=== PATIENT | female | born 1975 | race Caucasian/White ===

== ENCOUNTER 2021-01-15 05:50 | Day surgery (SDC) | payer OTHER ==
[~2021-01-15] VITALS: Ht 162.6 cm; Wt 70.5 kg
--- NOTE | ~2021-01-15 | OR ---
[facility] [address], [place] [address] Draft DATE OF OPERATION: 01/15/2021 SURGEON: Alea Jarvis DO PREOPERATIVE DIAGNOSIS: Left ovarian mass. POSTOPERATIVE DIAGNOSES: 1. Left ovarian mass. 2. Endometriosis. 3. Significant pelvic adhesions. PROCEDURE PERFORMED: Diagnostic laparoscopy. ROTARY HELPER: Amarjit Collado MD ANESTHESIA: General. ESTIMATED BLOOD LOSS: 10 mL. SPECIMEN: Peritoneal washings. FINDINGS: Complex-appearing 10 cm left ovarian cyst consistent with endometrioma. Significant adhesions of mass to bowel and uterus. Unable to visualize left fallopian tube or posterior uterus, pelvic cul-de-sac. Right fallopian tube densely adherent to pelvic sidewall. Numerous filmy adhesions between uterus, pelvic sidewall, and uterus. Numerous endometriosis lesions including powder burn lesions scattered across the peritoneum as well as left and right ovarian fossa. INDICATIONS: The patient is a 45-year-old female, who presented for evaluation of left ovarian mass. Case was reviewed with [facility] due to concerning size, mass, and complexity on imaging. CA-125 and AT4 were obtained and reassuring for local surgery. Risks, benefits, and alternatives to laparoscopic left oophorectomy were discussed with the patient including PATIENT NAME: SALMA WEISS OPERATIVE REPORT DATE OF : 75 REPORT #: [id number] PHYSICIAN: ALEA JARVIS DO PCP: JENIFER HOFFMAN PA-C REPORT IS CONFIDENTIAL AND NOT TO BE RELEASED WITHOUT AUTHORIZATION [facility] [address], [place] [address] Draft risk of encountering significant scar tissue requiring additional procedures. The recommendation for procedure being performed by [facility] in [place] instead. The patient elected to proceed. DESCRIPTION OF PROCEDURE: The patient was taken to the operating room. She was given 2 g of Ancef for antibiotic prophylaxis, placed under general anesthesia and prepped and draped in the normal sterile fashion. Weighted speculum was placed in the vagina. Cervix was grasped at the 12 o'clock position with an Allis clamp. Cervix could not be dilated to accommodate a Hulka clamp due to significant stenosis of the internal os despite attempts at dilation with lacrimal duct dilator. Instead, a sponge stick was placed in the posterior vagina and tenaculum and Allis clamp and weighted speculum were removed. Surgeon's gloves were changed and attention was turned to the abdomen. Infraumbilical horizontal incision was made with a scalpel and carried down to the fascia with sharp and blunt dissection with Metzenbaum scissors. The fascia was grasped with hemostats and incision made with Metzenbaum scissors. Superior margin of fascia was grasped with hemostat and a stay suture of 0 Vicryl was placed. In a similar fashion, inferior margin was grasped with hemostats. Stay suture of 0 Vicryl was placed. Peritoneum was entered bluntly and Kaitlin trocar was placed without difficulty. The patient was placed in Trendelenburg positioning. Left and right assist ports were placed laterally under direct visualization after infiltration of local anesthesia. Abdomen was then surveyed with findings as noted above. Pictures were taken of the significant scar tissue that was encountered as well as endometriosis lesions scattered across pelvic organs and peritoneum. Due to the extensive adhesions encountered, decision was made to terminate further procedure at this point and recommend total hysterectomy with left oophorectomy, possible bilateral oophorectomy with [facility]. Peritoneal washings were obtained. Pneumoperitoneum was evacuated. All instrumentation was removed. The fascia was closed with 0 Vicryl in a running fashion. Stay sutures were tied over the top of the fascial closure and skin was closed with 4-0 Monocryl. The patient tolerated procedure well. Sponge and instrument counts were correct x2. The patient was taken to recovery room in stable and satisfactory condition. Alea Jarvis DO EMZ/MODL /[id number] PATIENT NAME: SALMA WEISS OPERATIVE REPORT DATE OF : 75 REPORT #: [id number] PHYSICIAN: ALEA JARVIS DO PCP: JENIFER HOFFMAN PA-C REPORT IS CONFIDENTIAL AND NOT TO BE RELEASED WITHOUT AUTHORIZATION [address] [place], [place] [address] Draft Copies: ~ PATIENT NAME: SALMA WEISS OPERATIVE REPORT DATE OF : 75 REPORT #: [id number] PHYSICIAN: ALEA JARVIS DO PCP: JENIFER HOFFMAN PA-C REPORT IS CONFIDENTIAL AND NOT TO BE RELEASED WITHOUT AUTHORIZATION
[~2021-01-15 05:50] MED LIST: CITRACAL-VIT D1 EAC1 PO; DOXYCYCLINE HY100 MG PO; ENDOMETRIN100 MG VAGINAL; IBU800 MG PO; LEVOTHYROXINE75 MCG PO; MULTI VITAMIN1 EACH PO; NORCO 5-325 TA1 EACH PO; PRENATAL MULTI1 EAC3 PO; PROGESTERO50 MG/1 M1 IM; VITAMIN D22000 UNIT PO
--- NOTE | 2021-01-15 08:56 | NUR ---
01/15/21 0856 Sinai Marlow 0840-PATIENT ARRIVED TO PACU ON 6L MASK NONAROUSABLE. ORAL AIRWAY IN PLACE. RR EVEN SHALLOW BREATHING. RN HOLDING AIRWAY TO MAINTAIN OPEN. 3 LAP SITES TO ABDOMEN WITH BANDAIDS CDI. IVF INFUSING. SR. 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 RN HOLDING JAW TO MAINTAIN OPEN 6L MASK RR EVEN SHALLOW. 0855-PATIENTS HOB ELEVATED. PATIENT REPOSITIONED AND MAINTAING OWN AIRWAY. [address] RR EVEN. 100% 6L MASK.
--- NOTE | 2021-01-15 09:33 | NUR ---
PATIENT IS UP TO THE BATHROOM WITH MY STANDBY. PATIENT AMBULATES WELL, VOIDS 500 ML CLEAR, YELLOW URINE AND AMBULATES BACK TO HER ROOM. SCDS ARE ON AND IN PLACE. CALL LIGHT IS WITHIN REACH. SPOUSE AT THE BEDSIDE. ICED WATER GIVEN.
--- NOTE | 2021-01-15 09:44 | NUR ---
JELLO GIVEN. PATIENT IS SITTING UP IN BED EATING AND DRINKING AND TOLERATING THAT WELL.
--- NOTE | 2021-01-15 09:53 | NUR ---
PT ALERT, ORIENTED AND SUPPORTED BY HER SEBASTIEN. PT IS ANXIOUS, SPENT TIME INFORMING AND COMFORTING PT. ALL QUESTIONS ASKED ANSWERED, SEBASTIEN WILL REMAIN IN HOUSE. PT REQUESTED PRAYER-ESPECIALLY FOR DR GIORDANO. WILL FOLLOW NEEDED.
[2021-01-15] MEDS ORDERED: ADVIL200 MG PO (11:16)
[2021-01-15] MEDS ORDERED: HYDROCODON-ACE1 EA10 PO (11:16)
--- NOTE | 2021-01-15 13:07 | NUR ---
PATIENT PUSHES HER CALL LIGHT AND ASKS TO AMBULATE TO THE BATHROOM. SHE AMBULATES CAUTIOUSLY AND DENIES DIZZINESS. SHE IS BACK IN HER BED. CALL LIGHT IS WITHIN REACH. HEAD OF BED IS DOWN AND LIGHTS ARE DIMMED PER PATIENT'S REQUEST.
--- NOTE | 2021-01-15 14:52 | NUR ---
LE 1420: PT WITH CALL FOR RN. DRESSED AND REPORTS IS READY TO D/C. D/C INSTRUCTIONS PROVIDED AND DISCUSSED ORDERED. PT VOICES UNDERSTANDING AND DENIES QUESTIONS AT THIS TIME. SL D/C'D WITH CATH TIP INTACT AND PRESSURE APPLIED TO SITE. LE 1430: PT WHEELED OFF OF UNIT IN W/C BY THIS RN. TRANSFERS INTO VEHICLE INDPENDENTLY. RESP EVEN AND UNLABORED. NO PHYSICAL S/S OF DISTRESS AT THIS TIME
== END 2021-01-15 14:30 | disposition home or self-care (01) ==
LOC: DS 05:50 → OPS 05:50 → DS 08:45 → OPS 08:45 → EDSTATUS 08:45 → OPS 14:30
PROVIDERS: ATTEND Obstetrics & Gynecology
PROC: 0UJ34ZZ Inspection of Ovary, Percutaneous Endoscopic Approach (ICD-10-PCS; principal; 2021-01-15 06:45)
DX: N80.9 Endometriosis, unspecified (principal); N83.202 Unspecified ovarian cyst, left side; N73.6 Female pelvic peritoneal adhesions (postinfective); E03.9 Hypothyroidism, unspecified
CPT/HCPCS: 00840; 84703; J0330; J0690; J1100; J1644; J1885; J2250; J2405; J2704; J2765; J3010; J7121

== ENCOUNTER 2022-07-06 10:00 | Emergency (ER) | payer OTHER ==
[~2022-07-06] VITALS: Ht 162.6 cm; Wt 74.3 kg
[~2022-07-06 10:00] MED LIST changes: +ADVIL200 MG PO; +HYDROCODON-ACE1 EA10 PO
[2022-07-06] MEDS ORDERED: TYLENOL EXTRA500 MG PO (11:26)
[2022-07-06] MEDS ORDERED: LORATADINE-D 11 EACH PO (11:27)
[2022-07-06] MEDS ORDERED: HYDROCODON-ACE1 EA11 PO (14:11)
== END 2022-07-06 14:27 | disposition home or self-care (01) ==
LOC: ED 10:00
DX: N83.202 Unspecified ovarian cyst, left side (principal); E03.9 Hypothyroidism, unspecified; Z79.899 Other long term (current) drug therapy
CPT/HCPCS: 36415; 74177; 80053; 81001; 84703; 85025; 96360; 96361; 99284-25; A9270; J7030; Q9967

== ENCOUNTER 2023-03-24 07:15 | Day surgery (SDC) | payer OTHER ==
[~2023-03-24] VITALS: Ht 162.6 cm; Wt 74.2 kg
[~2023-03-24 07:15] MED LIST changes: +DULOXETINE HCL60 MG PO; +FISH OIL 1,0001 EAC8 PO; +HYDROCODON-ACE1 EA11 PO; +HYDROXYZINE HCL10 MG PO; +IBUPROFEN800 MG PO; +LORATADINE-D 11 EACH PO; +PRENATAL DHA200 MG PO; +PROBIOTIC1 EAC2 PO; +SPRINTEC1 EACH PO; +TYLENOL EXTRA500 MG PO; +VITAMIN D310 MC4 PO
[2023-03-24 07:52] VITALS: BP 133/75
[2023-03-24] MEDS ORDERED: ALPRAZOLAM1 MG PO (08:21)
[2023-03-24] MEDS ORDERED: XANAX0.5 MG PO (08:24)
[2023-03-24 10:12] VITALS: BP 123/68
--- NOTE | 2023-03-24 10:38 | OR ---
[facility] [address], [place] [address] Signed DATE OF OPERATION: 03/24/2023 SURGEON: Sujit Marie MD PREOPERATIVE DIAGNOSES: 1. Pelvic pain. 2. Endometriosis. 3. Chronic diarrhea. 4. Paternal cousin diagnosed with colon cancer at age 41 this year having undergone successful surgery at [facility]. 5. Paternal aunts x2 with colon polyps. POSTOPERATIVE DIAGNOSIS: Unremarkable colonoscopy. PROCEDURE: Colonoscopy with cold biopsies of the right colon, transverse colon, left colon, sigmoid colon and rectum. ESTIMATED BLOOD LOSS: None. INDICATIONS: Salma is a 47-year-old female, asked to see me for her initial colonoscopy. She was having trouble with pelvic pain and was having no success with in vitro fertilization. She underwent diagnostic laparoscopy locally and was found to have rather extensive endometriosis. She was therefore referred to Dr. Kalina Anaya at [facility] as a gynecologic oncologic surgeon. She was asked to undergo colonoscopy prior to her pelvic surgery. She also describes chronic diarrhea. She is quite confident it came after the levothyroxine. She told me the TSH levels are normal. She mentioned that a paternal cousin had developed symptoms of colon cancer at age 38. He was just diagnosed this year at age 41. He underwent successful surgery at [facility] and apparently he is doing well. She has two paternal aunts who had colon polyps in their 60s. In the office, she came with her mother. I gave them a booklet on colonoscopy. We reviewed the test together. There is risk including, but not limited to gas bloating, crampy abdominal pain, bleeding, perforation requiring surgery, and missed diagnosis. We also reviewed the written instructions for bowel prep. She also understands the need for IV conscious sedation. She has quite a bit of anxiety and she wanted to take some Xanax before she came today. We told her that would be perfectly fine. She had expressed understanding and wished to proceed. Electronically Signed By: SUJIT MARIE MD 03/24/23 1038 PATIENT NAME: SALMA WEISS OPERATIVE REPORT DATE OF : 75 REPORT #: [id number] PHYSICIAN: SUJIT MARIE MD PCP: JENIFER HOFFMAN PA-C REPORT IS CONFIDENTIAL AND NOT TO BE RELEASED WITHOUT AUTHORIZATION [facility] [address], [place] [address] Signed DESCRIPTION OF PROCEDURE: Salma indeed took some Xanax before she came. That did help her today. She was taken into the endoscopy suite and placed in the left lateral decubitus position. She required 10 mg of Versed and 100 mcg of fentanyl to cover the case. A digital rectal exam was performed and there were no masses noted in the rectum. She had good sphincter tone. No external hemorrhoids. The adult colonoscope was introduced and advanced slowly all the way around into the cecum under direct visualization of the camera. It took extra sedation and mild abdominal compression in order to advance the scope. She would definitely be more comfortable and benefit significantly from propofol infusion in the future. Eventually, we made it into the cecum and her prep was quite excellent. We could easily see the appendiceal orifice and the ileocecal valve. We tried several times to pass our scope into the ileocecal valve without success. The scope was then slowly withdrawn. We took random biopsies in the right colon, transverse colon, left colon, sigmoid colon and rectum. Coming through the distal transverse colon and the left colon, there seemed to be some mild effacement to the mucosa, but not in the sigmoid colon or rectum. Whether or not that is clinically significant will be determined by the biopsy results. Upon retroflexion of the scope in the rectum, she has several small internal anal skin tags. After this, the gas was suctioned out and the colonoscope removed. Salma tolerated the procedure well overall. RECOMMENDATIONS: I will see Salma back in my office in the weeks ahead to follow up the biopsies. Sujit Marie MD [facility]/MODL /[id number] cc: CAM Diallo DO Andrew L Bower, MD Dr. Jacqueline Wong Electronically Signed By: SUJIT MARIE MD 03/24/23 1038 PATIENT NAME: SALMA WEISS OPERATIVE REPORT DATE OF : 75 REPORT #: [id number] PHYSICIAN: SUJIT MARIE MD PCP: JENIFER HOFFMAN PA-C REPORT IS CONFIDENTIAL AND NOT TO BE RELEASED WITHOUT AUTHORIZATION [address] [address] Signed Copies: JENIFER HOFFMAN PA-C, ERICA M DO BOWER, ANDREW L MD ~ Electronically Signed By: SUJIT MARIE MD 03/24/23 1038 PATIENT NAME: SALMA WEISS OPERATIVE REPORT DATE OF : 75 REPORT #: [id number] PHYSICIAN: SUJIT MARIE MD PCP: JENIFER HOFFMAN PA-C REPORT IS CONFIDENTIAL AND NOT TO BE RELEASED WITHOUT AUTHORIZATION
[2023-03-24 11:08] VITALS: BP 130/72
--- NOTE | 2023-03-25 17:00 | PATH ---
[facility] [address], [place] [address] Signed SPECIMEN(S): A ASCENDING/RIGHT COLON BIOPSY SPECIMEN(S): B TRANSVERSE COLON BIOPSY SPECIMEN(S): C DESCENDING/LEFT COLON BIOPSY SPECIMEN(S): D SIGMOID COLON BIOPSY SPECIMEN(S): E RECTUM SPECIMEN SOURCE: A. ASCENDING/RIGHT COLON BIOPSY B. TRANSVERSE COLON BIOPSY C. DESCENDING/LEFT COLON BIOPSY D. SIGMOID COLON BIOPSY E. RECTUM CLINICAL HISTORY: Pre: Initial screening colonoscopy; family history polyps + colon CA; history of diarrhea. Post: Internal anal skin tag. FINAL PATHOLOGIC DIAGNOSIS: A. Ascending / right colon biopsy: - Benign colonic mucosa, negative for pathologic inflammation or dysplasia. B. Transverse colon biopsy: - Benign colonic mucosa, negative for specific diagnostic abnormality. C. Descending / left colon biopsy: - Benign colonic mucosa, negative for specific diagnostic abnormality. D. Sigmoid colon biopsy: - Benign colonic mucosa with slight hyperplastic features (one fragment). E. Rectum, biopsy: - Benign colonic mucosa with slight hyperplastic features (one fragment). JVR:[facility]:C2NR MICROSCOPIC EXAMINATION: Histologic sections of all submitted blocks are examined by light microscopy. These findings, together with the gross examination, support the pathologic diagnosis. GROSS DESCRIPTION: A. The specimen, labeled and designated "Wilyeback, ascending/right colon biopsy," is received in formalin and consists of one hedrick soft tissue fragment, 0.6 cm. Entirely submitted in (A1). B. The specimen, labeled and designated "Muleback, transverse colon biopsy," is received in formalin and consists of one hedrick soft tissue fragment, 0.3 cm. PATIENT NAME: SALMA WEISS PATHOLOGY DATE OF : 75 REPORT #: [id number] PHYSICIAN: [facility] PCP: JENIFER HOFFMAN PA-C REPORT IS CONFIDENTIAL AND NOT TO BE RELEASED WITHOUT AUTHORIZATION [facility] [address], [place] [address] Signed Entirely submitted in (B1). C. The specimen, labeled and designated "Wilyeback, descending/left colon biopsy," is received in formalin and consists of one hedrick soft tissue fragment, 0.4 cm. Entirely submitted in (C1). D. The specimen, labeled and designated "Muleback, sigmoid colon biopsy," is received in formalin and consists of one hedrick soft tissue fragment, 0.3 cm. Entirely submitted in (D1). E. The specimen, labeled and designated "Muleback, rectum biopsy," is received in formalin and consists of one hedrick soft tissue fragment, 0.3 cm. Entirely submitted in (E1). VB (under the direct supervision of a pathologist) The Gross Description was prepared using a voice recognition system. The report was reviewed for accuracy; however, sound-alike word errors, addition and/or deletions may occur. If there is any question about this report, please contact Client Services. PERFORMING LABORATORY: The technical component was performed by [facility], [address] [place] [id number] (CLIA# [id number]). Professional interpretation was performed by [facility], [address] [place] [id number] (CLIA#: [id number]). Diagnostician: Alan Hurtado MD Pathologist Electronically Signed 03/25/2023 Copies: ~ PATIENT NAME: SALMA WEISS PATHOLOGY DATE OF : 75 REPORT #: [id number] PHYSICIAN: LILIAN ESPINO PCP: JENIFER HOFFMAN PA-C REPORT IS CONFIDENTIAL AND NOT TO BE RELEASED WITHOUT AUTHORIZATION
== END 2023-03-24 11:10 | disposition home or self-care (01) ==
LOC: OPS 07:15 → DS 07:15 → OPS 08:15 → DS 08:15 → OPS 11:10
PROVIDERS: ATTEND Colon & Rectal Surgery
PROC: 0DBL8ZX Excision of Transverse Colon, Via Natural or Artificial Opening Endoscopic, Diagnostic (ICD-10-PCS; 2023-03-24)
PROC: 0DBN8ZX Excision of Sigmoid Colon, Via Natural or Artificial Opening Endoscopic, Diagnostic (ICD-10-PCS; 2023-03-24)
PROC: 0DBP8ZX Excision of Rectum, Via Natural or Artificial Opening Endoscopic, Diagnostic (ICD-10-PCS; 2023-03-24)
PROC: 0DBF8ZX Excision of Right Large Intestine, Via Natural or Artificial Opening Endoscopic, Diagnostic (ICD-10-PCS; 2023-03-24)
PROC: 0DBG8ZX Excision of Left Large Intestine, Via Natural or Artificial Opening Endoscopic, Diagnostic (ICD-10-PCS; principal; 2023-03-24 08:15)
DX: Z12.11 Encounter for screening for malignant neoplasm of colon (principal); K63.89 Other specified diseases of intestine; K62.89 Other specified diseases of anus and rectum; Z83.71 Family history of colonic polyps; Z80.0 Family history of malignant neoplasm of digestive organs; K52.9 Noninfective gastroenteritis and colitis, unspecified; F41.9 Anxiety disorder, unspecified; N80.9 Endometriosis, unspecified; N83.8 Other noninflammatory disorders of ovary, fallopian tube and broad ligament; E03.9 Hypothyroidism, unspecified; Z79.890 Hormone replacement therapy; Z79.899 Other long term (current) drug therapy
CPT/HCPCS: 36415; 84703; 99153; G0500; J2250; J2405; J3010; J7121

== ENCOUNTER 2024-04-16 02:36 | Emergency (ER) | payer OTHER ==
[~2024-04-16] VITALS: Ht 162.6 cm; Wt 72.4 kg
[~2024-04-16 02:36] MED LIST changes: +ALPRAZOLAM1 MG PO; +DICYCLOMINE HCL10 MG PO; +KRILL OIL 1,501 EACH PO; +ONDANSETRON ODT8 MG PO; +XANAX0.5 MG PO
--- OUTSIDE RECORDS SUMMARY | 2024-04-16 02:37 | XMS ---
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 - 2 Visits in 30 Days CARE PROVIDERS -, [facility] Dentist: Reading Intervention Teacher Current [place] PHONE: [phone] -Mauricio- Dentist: Reading Intervention Teacher Current [facility] PHONE: [phone] MAUDE Barros [facility] Current PHONE: Unknown Care Guidelines exist for the following facilities: [facility] ( 04/01/2020 ) [place] VISIT COUNT (12 MO.) 2 [facility] [place] TOTAL 2 NOTE: Visits indicate total known visits. ED/UCC VISIT TRACKING (12 MO.) 04/16/2024 02:36 [facility] [place] TYPE: Emergency COMPLAINT: - ABD PAIN 04/15/2024 02:33 [facility] [place] TYPE: Emergency COMPLAINT: - ADVERSE REACTION INPATIENT VISIT TRACKING (12 MO.) No inpatient visits to display in this time frame [email or web address]
[2024-04-16] MEDS ORDERED: SODIUM CHLORIDE 0.9% 1,000 ML IV ONE (03:00)
[2024-04-16] MEDS ORDERED: MORPHINE SULFATE 4 MG/ML VIAL IV ONE (03:00)
[2024-04-16] MEDS ORDERED: ondansetron HCL 4 MG/2 ML VIAL IV ONE (03:00)
[2024-04-16 03:27] LABS: BILIRUBIN, URINE NEGATIVE (negative); BLOOD/HGB, URINE SMALL (Negative); KETONE, URINE NEGATIVE (Negative); LEUK ESTERASE, URINE NEGATIVE (negative); NITRITE, URINE NEGATIVE (negative)
[2024-04-16 03:28] LABS: BASOPHILS 2.6 % (0-2); EOSINOPHILS 1.6 % (0-6); HEMATOCRIT 45.3 % (35.0-50.0); HEMOGLOBIN 14.8 g/dL (12.0-18.0); LYMPHOCYTES 12.1 % (24-44); MCH 29.6 (27-36); MCHC 32.7 g/dl (30-36); MCV 90.5 fl (81-99); MONOCYTES 6.4 % (0-12); NEUTROPHILS 77.3 % (39-80); PLATELET COUNT 248 K/uL (140-440); RDW 13.7 (10.5-15.0)
[2024-04-16 03:35] LABS: BACTERIA, URINE NONE SEEN /hpf (negative); CASTS, URINE NONE SEEN \\lpf; COLLECTION TYPE, URINE CLEAN CATCH; CRYSTALS, URINE NONE SEEN (0-1+); EPITHELIAL CELLS, URINE SQUAMOUS 2+ /lpf (0-1+); REFLEX CULTURE, URINE No (No); WHITE BLOOD CELLS, URINE 0-1 /HPF (0-5)
[2024-04-16 03:44] LABS: ANION GAP 9.7 (7-21); BILIRUBIN, TOTAL 0.7 ng/dL (0.2-1.0); BUN/CREATININE RATIO 6.59 (6.0-28.6); CALCIUM 8.2 mg/dL (8.5-10.1); CREATININE, SERUM 0.91 mg/dL (0.55-1.02); POTASSIUM 3.7 mmol/L (3.5-5.1); PROTEIN, TOTAL 7.4 g/dL (6.4-8.2)
[2024-04-16 03:53] LABS: ALBUMIN 3.7 g/dL (3.4-5.0)
[2024-04-16] MEDS ORDERED: AMOX TR-K CLV1 EAC1 PO (03:58)
[2024-04-16] MEDS ORDERED: methylPREDNISolone 4 MG HOME.PACK PO ONE (04:00)
[2024-04-16] MEDS ORDERED: AMOXICILLIN/CLAVULANATE K 875 MG HOME.PACK PO ONE (04:00)
[2024-04-16 04:44] VITALS: BP 150/80
== END 2024-04-16 04:45 | disposition home or self-care (01) ==
LOC: ED 02:36
PROVIDERS: Family Medicine
DX: K52.9 Noninfective gastroenteritis and colitis, unspecified (principal); E03.9 Hypothyroidism, unspecified; Z79.890 Hormone replacement therapy; Z79.899 Other long term (current) drug therapy
CPT/HCPCS: 36415; 74177; 80053; 81001; 83690; 84703; 85025; J2270; J2405; J7030; Q9967